=== PATIENT | male | born 1940 | race Caucasian/White ===

== ENCOUNTER 2021-06-14 10:50 | Outpatient (CLI) | payer MEDICARE, OTHER, SELFPAY ==
[2021-06-14 11:28] LABS: Basophils Percent Auto 0.3 % (0.2-1.2); Eosinophils Absolute Auto 0.1 K/mm3 (0-0.3); Eosinophils Percent Auto 0.8 % (0-4.4); Hematocrit 44.6 % (42.0-52.0); Hemoglobin 14.1 g/dL (14.0-18.0); Immature Granulocyte Absolute 0.02 K/mm3 (0.00-0.031); Immature Granulocyte Percent A 0.3 % (0-0.5); Immature Platelet Fraction Pct 4.1 % (0.9-11.2); Lymphocytes Absolute Auto 0.79 K/mm3 (0.9-3.2); Lymphocytes Percent Auto 12.8 % (18.3-44.2); Mean Corpuscular HGB Conc 31.6 g/dl (32-36); Mean Corpuscular Hemoglobin 31.3 pg (26-34); Mean Corpuscular Volume 98.9 fl (80-100); Monocytes Absolute Auto 0.2 K/mm3 (0.1-0.6); Monocytes Percent Auto 3.2 % (2.6-8.5); Neutrophils Absolute Auto 5.1 K/mm3 (1.3-6.7); Neutrophils Percent Auto 82.6 % (45.5-73.1); Platelet Count Result 126 k/mm3 (150-375); Red Blood Count 4.51 M/mm3 (4.6-6.20); White Blood Count 6.2 K/mm3 (4.5-10.0)
[2021-06-14 11:36] LABS: Anion Gap 9 mmol/L (8-16); Blood Urea Nitrogen 29 mg/dL (9-20); Calcium 9.6 mg/dL (8.4-10.2); Carbon Dioxide 31 mmol/L (22-30); Chloride 100 mmol/L (98-107); Estimated Glomerular Filt Rate > 60; Glucose 227 mg/dL (65-110); Potassium 4.2 mmol/L (3.4-5.0); Sodium 140 mmol/L (137-145)
[2021-06-14 11:37] LABS: INR 1.1; Prothrombin Time 13.4 Seconds (11.1-14.7)
[2021-06-14 11:38] LABS: Partial Thromboplastin Time 25.6 SECONDS (22.3-36.8)
--- NOTE | 2021-06-14 12:30 | ECG_ITS ---
Measurements Intervals [place] Rate: 67 P: 22 TX: 146 QRS: 43 QRSD: 91 T: 50 QT: 406 QTc: 429 Interpretive Statements SINUS RHYTHM BASELINE ARTIFACT- I, II, III, AVR, AVL, AVF NORMAL ECG Electronically Signed On 06-14-2021 11:55:27 CDT by Barrett Houston D.O.
== END 2021-06-14 10:51 | disposition home or self-care (01) ==
LOC: ANHSURGERY 10:54
PROVIDERS: PCP Family Medicine; Visit Provider Urology
DX: Z01.818 Encounter for other preprocedural examination (principal); I10 Essential (primary) hypertension; C67.9 Malignant neoplasm of bladder, unspecified
CPT/HCPCS: 36415; 80048; 85025; 85055; 85610; 85730; 87086; 93005

== ENCOUNTER 2021-06-18 00:05 | Day surgery (SDC) | payer MEDICARE, OTHER, SELFPAY ==
--- NOTE | 2021-06-14 10:08 | PC.NURSE ---
Report to the Outpatient Waiting Room, entrance under the green pavilion located off [facility], at time _0830 on date ___06/18/21____. OR Time: ___1030 . - You and your visitor will be asked a series of questions to screen for COVID 19 for your protection. - Only one visitor is allowed at this time. - The patient visitor is requested to leave or wait in car when not with patient. - A mask is required within the hospital. Patients may have clear liquids (water, carbonated beverages, clear teas, apple juice) until 3 hours prior to surgery with a maximum of 20 ounces. - No food from midnight until time of surgery - Infants may have breast milk until 4 hours before surgery, infant formula 6 hours prior to surgery. - Children will be allowed to drink immediately following surgery. If applicable, please bring a bottle or sippy cup to assist with drinking. Juice, water, soda, and popsicles are readily available. For infants on formula, please bring formula the day of surgery. Pacifiers are allowed. Take the following medications with a SIP of water the morning of surgery: ___METOPROLOL, AND PREGABALIN Medications to discontinue per physician _PT STATES ALL VITAMINS AND SUPPLEMENTS AND ASPIRIN 7 DAYS PRE OP PER DR MATIAS. ELIQUIS 3 DAYS PRE OP PER DR MATIAS Date to take last dose_ASPIRIN/PADMAJA/SUPPLEMENTS 06/10/21, ELIQUIS 06/14/21 Please no make-up, nail georgian, hairspray, perfume, deodorant, or body powder the day of surgery. No jewelry (including any body piercings) or valuables the day of surgery, leave them at home. Please take a shower or bath the night before, or the morning of, surgery with an antibacterial soap. Wear comfortable, loose fitting clothing. Children are encouraged to wear pajamas. - Jewelry must be removed prior to entering the operating room. Rings and piercings that are not removed may be cut off. - The hospital will not accept responsibility for valuables. - Please leave all valuables, including medications, at home the day of surgery. If you are going home after surgery, a licensed driver guard must drive you home. - NO public transportation without another adult. - We recommend that an adult stay with you for 24 hours following discharge. - We also recommend that you do not drive, make important decision, drink alcoholic beverages, or take any drugs that were not prescribed by your health care provider for at least 24 hours after your discharge time. For Pediatric surgeries, we recommend two adults accompany the child home (only one inside the building at this time). Follow any additional instructions given to you from your surgeon. If you or anyone in your household have experienced Covid symptoms in the past week, please notify your surgeon or the nurse liaison at the phone number below for possible testing. Telephone instructions given to __PATIENT AND SIMI and asked if any additional questions and then verbalized understanding. Patient advised to call surgeon office or pre surgery nurse liaison [phone] if any additional questions.
[2021-06-14 10:12] VITALS: BMI 21.3
[2021-06-18] VITALS (8 sets, daily range): BP systolic 122–157; BP diastolic 66–79; PULSE 70–87; RESP 13–16; TEMP 36.2–36.3; O2SAT 96–100
--- NOTE | ~2021-06-18 | XR_ITS ---
XR retrograde pyelogram BI DATE: 06/18/2021 10:08 INDICATION: Bilateral stones TECHNIQUE: 27.0 seconds fluoroscopy time [id number] [id number] Multiple spot C-arm images during retrograde pyelogram procedure performed by urologist COMPARISON: 12/15/2017 right retrograde pyelogram FINDINGS: No right ureteral stricture, abnormal dilatation or obstruction is evident. Right renal col lecting system and right renal pelvis appear unremarkable. IMPRESSION: No significant abnormality demonstrated; recommend correlation with urologist procedure r eport Reviewed, dictated and finalized at [facility]. Reviewed, dictated and finalized at location [facility]. IMPRESSION: No significant abnormality demonstrated; recommend correlation with urologist procedure report
--- NOTE | 2021-06-18 07:36 | WPDHPUPDATE1 ---
History and Physical Update Update Date/Time: 06/18/21 07:36 History and Physical has been reviewed, including an updated exam of the patient. There are NO changes in the patient's condition. Risks, benefits, and alternatives have been discussed and questions answered. Patient agrees to proceed with procedure. Proceed with cysto, bilateral retrogrades with ureteroscopy, stent placement turbt
--- NOTE | 2021-06-18 08:12 | P.PNAN_ITS ---
Anes - Initial Pre Proc Eval Procedure: Operation Date: 06/18/21 10:30 Proposed Procedures p Trans Urethral Resection Bladder Tumor, - David English MD s Bilateral Retrograde Pyelogram, Possible Ureteroscopy, Possible Stent Placement - David English MD Date/Time: 06/18/21 08:12 Surgeon: David English MD Pre Op Diagnosis: bladder CA Patient Data Age: 81 Gender: M Height: 1.73 m Weight: 63.6 kg Allergies Allergy/AdvReac Type Severity Reaction Status Date / Time No Known Allergies Allergy Unverified 06/14/21 09:38 Home Medications Medication Instructions Recorded Confirmed Type Lactobacillus acidophilus 1,000 mmu cells PO DAILY 01/31/19 06/14/21 History ascorbic acid (vitamin C) 500 mg PO BID 01/31/19 06/14/21 History aspirin [Adult Low Dose Aspirin] 81 mg PO DAILY 01/31/19 06/14/21 History cholecalciferol (vitamin D3) 5,000 unit PO DAILY 01/31/19 06/14/21 History coQ10 (ubiquinol) 200 mg PO BID 01/31/19 06/14/21 History garlic 1,000 mg PO DAILY 01/31/19 06/14/21 History magnesium oxide 500 mg PO DAILY 01/31/19 06/14/21 History multivit with min-folic acid 0.4 mg PO DAILY 01/31/19 06/14/21 History [Adult One Daily Multivitamin] omega 9-qkf-ibw-fish oil [Fish Oil] 1 cap PO BID 01/31/19 06/14/21 History simvastatin 5 mg PO HS 01/31/19 06/14/21 History apixaban [Eliquis] 5 mg PO BID 06/14/21 06/14/21 History diphenoxylate-atropine 1 tablet PO DAILY 06/14/21 06/14/21 History empagliflozin [Jardiance] 25 mg PO DAILY 06/14/21 06/14/21 History escitalopram oxalate 10 mg PO HS 06/14/21 06/14/21 History losartan 50 mg PO DAILY 06/14/21 06/14/21 History metoprolol tartrate 25 mg PO DAILY 06/14/21 06/14/21 History pregabalin 75 mg PO BID 06/14/21 06/14/21 History Patient hx anesthesia problems: none Family hx anesthesia problems: none Results Review: All pre-operative results and documents have been reviewed as part of the pre-operative evaluation. [facility] Past Medical History Medical History Diabetes type 2, controlled DVT (deep venous thrombosis) superficial History of colon cancer Hyperlipidemia Neuropathy Surgical History Surgical History (Updated 06/18/21 @ 08:14 by Christian Guillaume MD) History of colon resection Hx of cystoscopy Social History Social History Smoking status: Never smoker Living arrangements: with family Spiritual care concerns: No Anes - Eval Final PreProcedure Day of Procedure 06/18/21 08:12 Patient weight: normal Heart: regular rate and rhythm Lungs: clear to auscultation Airway: Mallampati scale class II Neurological: alert and oriented Last oral intake: >/= 8 hours ASA classification: III Emergent: no Anesthetic plan: proceed Anesthesia type and monitoring: general LMA and standard monitoring Results Review: All pre-operative results and documents have been reviewed as part of the pre-operative evaluation. Informed Consent: The patient's anesthetic plan and its attendant risks and benefits were discussed with the patient/family/POA. Questions were solicited and answers provided to the satisfaction of the patient/family/POA.
[2021-06-18] MEDS: LACTATED RINGERS 1,000 ML 30 ML IV CONT (08:29)
[2021-06-18 08:44] LABS: Glucose Point of Care 134 mg/dl (65-105)
[2021-06-18] MEDS: ceFAZolin 2 GM/D5W 50 ML 2 GM/50 ML BAG IVPB (09:31)
[2021-06-18] MEDS: LIDOCAINE HCL 2% GEL UROJET 10 ML PKG MUCOUS MEM (10:00)
--- NOTE | 2021-06-18 10:05 | W.PM.PROC2 ---
Procedure Note - Detailed Date of Procedure 06/18/21 Pre-op Diagnosis bladder CA Post-op Diagnosis Same Procedure Performed Cystoscopy, bilateral retrograde pyelograms, transurethral resection of bladder tumor posterior wall with fulguration of extensive area of mucosal irregularity Surgeon David English MD Anesthesia General Description of Procedure Patient is taken to the operative suite and correctly identified. Once anesthesia was obtained he was placed in dorsal lithotomy position and prepped and draped usual sterile fashion. Twenty-two Guatemalan scope inserted in the bladder. There was no urethral strictures. The bladder itself has a tumor along the posterior wall measuring approximately 1 cm. He also has some irregularity of the mucosa along the right lateral wall. , as well as the floor on the left distal to the trigone extending to the left lateral wall. At this point time we did bilateral retrograde pyelograms. The right ureteral orifice is wide open from a prior resection. The [place] was advanced up into the kidney there was no filling defects noted. The left retrograde pyelogram revealed some tortuosity in the distal ureter. No other filling defects noted. The left collecting system drained after approximately 5 minutes. We then exchanged the scope out for a 24 Guatemalan resectoscope sheath. The posterior wall lesion was then resected and sent for analysis. We placed a rollerball and fulgurated the base. We then fulgurated some of the mucosa along the right lateral wall as well as the left debby trigone area distally in left lateral wall. There was good hemostasis at termination of procedure. 2% viscous lidocaine was inserted into the urethra patient is taken recovery stable condition. He will call for path results in 1 week Estimated Blood Loss 0 Drains No Packing No Pathology Yes Complications No immediate complications Condition Stable Disposition PACU
[2021-06-18 10:18] LABS: Glucose Point of Care 140 mg/dl (65-105)
== END 2021-06-18 12:38 | disposition home or self-care (01) ==
PROVIDERS: PCP Family Medicine; Visit Provider Urology
PROC: 0TBB8ZZ Excision of Bladder, Via Natural or Artificial Opening Endoscopic (ICD-10-PCS; CPT 52234; principal; 2021-06-18 10:30)
PROC: (CPT 52352; 2021-06-18 10:30)
DX: C67.4 Malignant neoplasm of posterior wall of bladder (principal); E78.5 Hyperlipidemia, unspecified; E11.40 Type 2 diabetes mellitus with diabetic neuropathy, unspecified; F03.90 Unspecified dementia, unspecified severity, without behavioral disturbance, psychotic disturbance, mood disturbance, and anxiety; I11.9 Hypertensive heart disease without heart failure; Z85.038 Personal history of other malignant neoplasm of large intestine; Z86.718 Personal history of other venous thrombosis and embolism; Z90.49 Acquired absence of other specified parts of digestive tract; Z79.01 Long term (current) use of anticoagulants; Z79.82 Long term (current) use of aspirin; Z79.84 Long term (current) use of oral hypoglycemic drugs
CPT/HCPCS: 52234; 74420; 82948; 88305; A9270; C1758; C1769; J0690; J2370; J2405; J2704; J3010; J7120; Q9966

== ENCOUNTER 2021-06-24 18:19 | Emergency (ER) | payer MEDICARE, OTHER, SELFPAY ==
[2021-06-24 18:19] VITALS: BP 100/54; PULSE 88; RESP 18; TEMP 36.1; O2SAT 97
[2021-06-24 18:35] LABS: Basophils Absolute Auto 0.1 K/mm3 (0.0-0.1); Basophils Percent Auto 0.7 % (0.2-1.2); Eosinophils Absolute Auto 0.2 K/mm3 (0-0.3); Eosinophils Percent Auto 2.1 % (0-4.4); Hematocrit 43.1 % (42.0-52.0); Hemoglobin 13.6 g/dL (14.0-18.0); Immature Granulocyte Absolute 0.01 K/mm3 (0.00-0.031); Immature Granulocyte Percent A 0.1 % (0-0.5); Immature Platelet Fraction Pct 4.5 % (0.9-11.2); Lymphocytes Absolute Auto 1.08 K/mm3 (0.9-3.2); Lymphocytes Percent Auto 15.1 % (18.3-44.2); Mean Corpuscular HGB Conc 31.6 g/dl (32-36); Mean Corpuscular Hemoglobin 30.9 pg (26-34); Mean Platelet Volume 10.6 fl (7.4-10.4); Monocytes Absolute Auto 0.6 K/mm3 (0.1-0.6); Monocytes Percent Auto 8.8 % (2.6-8.5); Neutrophils Absolute Auto 5.2 K/mm3 (1.3-6.7); Neutrophils Percent Auto 73.2 % (45.5-73.1); Platelet Count Result 135 k/mm3 (150-375); Red Cell Distribution Width 15.2 % (11.5-14.5); White Blood Count 7.1 K/mm3 (4.5-10.0)
[2021-06-24 18:45] LABS: INR 1.1; Prothrombin Time 14.1 Seconds (11.1-14.7)
[2021-06-24 18:46] LABS: Alanine Aminotransferase 17 U/L (6-50); Albumin Level 4.6 g/dL (3.5-5.1); Alkaline Phosphatase 74 U/L (38-126); Anion Gap 5 mmol/L (8-16); Aspartate Amino Transferase 28 U/L (17-59); Bilirubin,Total 0.9 mg/dL (0.2-1.3); Blood Urea Nitrogen 27 mg/dL (9-20); Calcium 9.7 mg/dL (8.4-10.2); Carbon Dioxide 30 mmol/L (22-30); Chloride 102 mmol/L (98-107); Estimated CRCL calculation 43 ml/min; Estimated Glomerular Filt Rate 58; Glucose 138 mg/dL (65-110); Partial Thromboplastin Time 28.4 SECONDS (22.3-36.8); Sodium 137 mmol/L (137-145)
[2021-06-24 18:49] LABS: Add Urine Microscopic? YES; Appearance Urine Cloudy (Clear); Blood Urine 3+ (Negative); Color Urine Red (Yellow); Glucose Urine UA 3+ mg/dL (Negative); Protein Urine 3+ mg/dL (Negative)
[2021-06-24 20:02] VITALS: BP 110/68; PULSE 78; RESP 16; TEMP 36.8; O2SAT 98
--- NOTE | 2021-06-24 20:07 | ED.MALEGU ---
HPI - Male Genitourinary General Chief complaint: Urogenital-Male Stated complaint: HEMATURIA Time Seen by Provider: 06/24/21 19:53 Source: patient, RN notes reviewed and old records reviewed Mode of arrival: ambulatory Limitations: no limitations History of Present Illness HPI Narrative: This is a 81 year old male with history of DVT, colon cancer, bladder cancer s/p transurethral resection of bladder tumor 06/18/21 who presents for evaluation of hematuria. Patient developed blood in his urine 3 days ago. Today he restarted his eliquis and his bleeding has worsening. He states he is passing clots in his urine now. He denies abdominal pain, nausea, vomiting, fever or chills. His states patient is on Eliquis for DVT prophylaxis due to cancer treatment. PAtient was diagnosed with DVT in 2019 per . Related Data Home Medications Medication Instructions Recorded Confirmed Lactobacillus acidophilus 1,000 mmu cells PO DAILY 01/31/19 06/18/21 ascorbic acid (vitamin C) 500 mg PO BID 01/31/19 06/18/21 aspirin [Adult Low Dose Aspirin] 81 mg PO DAILY 01/31/19 06/18/21 cholecalciferol (vitamin D3) 5,000 unit PO DAILY 01/31/19 06/18/21 coQ10 (ubiquinol) 200 mg PO BID 01/31/19 06/18/21 garlic 1,000 mg PO DAILY 01/31/19 06/18/21 magnesium oxide 500 mg PO DAILY 01/31/19 06/18/21 multivit with min-folic acid 0.4 mg PO DAILY 01/31/19 06/18/21 [Adult One Daily Multivitamin] omega 4-wox-gvj-fish oil [Fish Oil] 1 cap PO BID 01/31/19 06/18/21 simvastatin 5 mg PO HS 01/31/19 06/18/21 Eliquis 5 mg PO BID 06/14/21 06/18/21 Jardiance 25 mg PO DAILY 06/14/21 06/18/21 diphenoxylate-atropine 1 tablet PO DAILY 06/14/21 06/18/21 escitalopram oxalate 10 mg PO HS 06/14/21 06/18/21 losartan 50 mg PO DAILY 06/14/21 06/18/21 metoprolol tartrate 25 mg PO DAILY 06/14/21 06/18/21 pregabalin 75 mg PO BID 06/14/21 06/18/21 Lantus Solostar U-100 Insulin 20 unit SUBCUT HS 06/18/21 06/18/21 hydrocodone-acetaminophen 1 tablet PO PRN 06/18/21 06/18/21 Allergies Allergy/AdvReac Type Severity Reaction Status Date / Time No Known Allergies Allergy Verified 06/24/21 18:23 Review of Systems Review of Systems: All systems reviewed & are unremarkable except as noted in HPI and below Constitutional: Constitutional: Denies chills, Denies fever(s) and Denies weakness Respiratory: Respiratory: Denies dyspnea Gastrointestinal: Gastrointestinal: Denies abdominal pain, Denies diarrhea, Denies nausea and Denies vomiting Genitourinary: Genitourinary: Reports hematuria, Denies oliguria, Denies dysuria and Denies urinary frequency Musculoskeletal: Musculoskeletal: Denies back pain [facility] Past Medical History Medical History (Updated 06/25/21 @ 00:00 by Lawrence Feliz) Diabetes type 2, controlled DVT (deep venous thrombosis) superficial History of colon cancer Hyperlipidemia Neuropathy Surgical History Surgical History (Updated 06/18/21 @ 08:14 by Christian Guillaume MD) History of colon resection Hx of cystoscopy Social History Social History Smoking status: Never smoker Spiritual care concerns: No Exam Const: General: no acute distress Orientation/consciousness: patient oriented x3 Other: thin Eyes: EOM: EOMs intact bilaterally Resp: Effort & Inspection: normal respiratory effort and no retractions Auscultation: clear to auscultation bilaterally Cardio: Rate: regular rate Rhythm: regular rhythm Heart sounds: no murmurs GI: GI Palp: Yes Soft to palpation, No Tenderness to palpation present (GI), No Guarding due to palpation present (GI) and No Rigid due to palpation Auscultation: normal bowel sounds Other: drain in RUQ : Male General Exam: Yes normal external exam Back/Spine/Pelvis: Back: no CVA tenderness Neuro: General: patient oriented x3 and moves all extremities Cranial nerves: Yes Nystagmus not present Psych: Mental Status: mental status grossly normal
[2021-06-24 21:00] VITALS: BP 108/68; PULSE 92; RESP 16; TEMP 36.4
[2021-06-24 22:00] VITALS: BP 114/72; PULSE 86; RESP 16; TEMP 36.6; O2SAT 98
[2021-06-24 22:44] LABS: RBC Urine >75 /hpf (0-2)
[2021-06-24 23:01] LABS: Ketones Urine Negative (Negative); Specific Grav Ur 1.025 (1.001-1.035)
[2021-06-24 23:02] LABS: Bilirubin Urine Negative (Negative); Leukocyte Esterase Ur Negative LEU/UL (Negative); Nitrate Urine Negative (Negative); Urobilinogen Urine 0.2 mg/dL (<2.0)
== END 2021-06-24 22:29 | disposition home or self-care (01) ==
PROVIDERS: Emergency Medicine; Emergency Provider General Practice; PCP Family Medicine
DX: R31.0 Gross hematuria (principal); C67.9 Malignant neoplasm of bladder, unspecified; E78.5 Hyperlipidemia, unspecified; E11.40 Type 2 diabetes mellitus with diabetic neuropathy, unspecified; Z85.038 Personal history of other malignant neoplasm of large intestine; Z86.718 Personal history of other venous thrombosis and embolism; Z79.82 Long term (current) use of aspirin; Z79.01 Long term (current) use of anticoagulants; Z79.84 Long term (current) use of oral hypoglycemic drugs; Z79.4 Long term (current) use of insulin
CPT/HCPCS: 36415; 80053; 81001; 85025; 85055; 85610; 85730; 99283

== ENCOUNTER 2022-01-23 07:58 | Outpatient (CLI) | payer MEDICARE, OTHER, SELFPAY ==
[2022-01-23 08:28] LABS: Anion Gap 6 mmol/L (8-16); Blood Urea Nitrogen 13 mg/dL (9-20); Calcium 9.3 mg/dL (8.4-10.2); Carbon Dioxide 32 mmol/L (22-30); Chloride 106 mmol/L (98-107); Estimated Glomerular Filt Rate > 60; Glucose 129 mg/dL (65-110); Potassium 3.2 mmol/L (3.4-5.0); Sodium 144 mmol/L (137-145)
[2022-01-23 08:39] LABS: Basophils Percent Auto 0.6 % (0.2-1.2); Eosinophils Absolute Auto 0.2 K/mm3 (0-0.3); Eosinophils Percent Auto 3.4 % (0-4.4); Hematocrit 43.9 % (42.0-52.0); Hemoglobin 13.7 g/dL (14.0-18.0); Immature Granulocyte Absolute 0.01 K/mm3 (0.00-0.031); Immature Granulocyte Percent A 0.2 % (0-0.5); Immature Platelet Fraction Pct 6.2 % (0.9-11.2); Lymphocytes Absolute Auto 0.98 K/mm3 (0.9-3.2); Lymphocytes Percent Auto 18.4 % (18.3-44.2); Mean Corpuscular HGB Conc 31.2 g/dl (32-36); Mean Corpuscular Hemoglobin 27.6 pg (26-34); Mean Corpuscular Volume 88.3 fl (80-100); Mean Platelet Volume 11.6 fl (7.4-10.4); Monocytes Absolute Auto 0.4 K/mm3 (0.1-0.6); Monocytes Percent Auto 7.7 % (2.6-8.5); Neutrophils Absolute Auto 3.7 K/mm3 (1.3-6.7); Neutrophils Percent Auto 69.7 % (45.5-73.1); Platelet Count Result 127 k/mm3 (150-375); Red Blood Count 4.97 M/mm3 (4.6-6.20); White Blood Count 5.3 K/mm3 (4.5-10.0)
[2022-01-23 08:41] LABS: INR 1.1; Prothrombin Time 13.5 Seconds (11.1-14.7)
[2022-01-23 08:42] LABS: Partial Thromboplastin Time 33.1 SECONDS (22.3-36.8)
== END 2022-01-23 07:59 | disposition home or self-care (01) ==
PROVIDERS: PCP Family Medicine; Visit Provider Urology
DX: C67.9 Malignant neoplasm of bladder, unspecified (principal); Z01.818 Encounter for other preprocedural examination
CPT/HCPCS: 36415; 80048; 85025; 85055; 85610; 85730; 87086

== ENCOUNTER 2022-02-11 06:01 | Day surgery (SDC) | payer MEDICARE, OTHER, SELFPAY ==
[2022-01-17 08:13] VITALS: BMI 22.8
--- NOTE | 2022-01-17 08:43 | PC.NURSE ---
Report to the Outpatient Waiting Room, entrance under the green pavilion located off [facility], at time __6:30AM on date ___01/28/22____. Planned Procedure Time: __8:30AM . Time changes happen often and if your time is changed the preop area will call you the afternoon before. - You and your visitor will be asked to self-screen and do not enter if you have any COVID symptoms. - Only one visitor is requested with a max of two and NO children visitors are allowed at this time. - The patient visitor may be requested to leave or wait in car when not with patient due to distancing restrictions. - A mask is optional within the hospital. Patients may have clear liquids (water, carbonated beverages, clear teas, apple juice) until 3 hours prior to surgery with a maximum of 20 ounces. - No food from midnight until time of surgery Take the following medications with a SIP of water the morning of surgery: __METOPROLOL; _PREGABALIN, HYDROCODONE & ZOFRAN NEEDED Medications to discontinue per physician ____HOLD ELIQUIS PER MD(PT'S CALLING OFFICE TO VERIFY), HOLD ASPIRIN & ALL VITAMINS/SUPPLEMENTS 7 DAYS PRE-OP PER DR MATIAS' OFFICE- LAST DOSE 01/21/22 Please no make-up, nail hebrew, hairspray, perfume, deodorant, or body powder the day of surgery. No jewelry (including any body piercings) or valuables the day of surgery, leave them at home. Please take a shower or bath the night before, or the morning of, surgery with an antibacterial soap. Wear comfortable, loose fitting clothing. Children are encouraged to wear pajamas. - Jewelry must be removed prior to entering the operating room. Rings and piercings that are not removed may be cut off. - The hospital will not accept responsibility for valuables. - Please leave all valuables, including medications, at home the day of surgery. If you are going home after surgery, a licensed combine driver must drive you home. - NO public transportation without another adult if you receive anesthesia. - We recommend that an adult stay with you for 24 hours following discharge. - We also recommend that you do not drive, make important decision, drink alcoholic beverages, or take any drugs that were not prescribed by your health care provider for at least 24 hours after your discharge time. Follow any additional instructions given to you from your surgeon. If you or anyone in your household have experienced Covid symptoms in the past week, please notify your surgeon or the nurse liaison at the phone number below for possible testing. Telephone instructions given to __PATIENT'S -SIMI___and asked if any additional questions and then verbalized understanding. Patient advised to call surgeon office or pre surgery nurse liaison [phone] if any additional questions.
--- NOTE | 2022-01-23 10:29 | PC.NURSE ---
Report to the Outpatient Waiting Room, entrance under the green pavilion located off [facility] [address], at time __6:00AM on date __02/11/22 . Planned Procedure Time: __7:30AM . Time changes happen often and if your time is changed the preop area will call you the afternoon before. - You and your visitor will be asked to self-screen and do not enter if you have any COVID symptoms. - Only one visitor is requested with a max of two and NO children visitors are allowed at this time. - The patient visitor may be requested to leave or wait in car when not with patient due to distancing restrictions. - A mask is optional within the hospital. Patients may have clear liquids (water, carbonated beverages, clear teas, apple juice) until 3 hours prior to surgery with a maximum of 20 ounces. - No food from midnight until time of surgery Take the following medications with a SIP of water the morning of surgery: _METOPROLOL; HYDROCODONE, PREGABALIN AND ZOFRAN NEEDED Medications to discontinue per physician HOLD ELIQUIS PER DR MATIAS(2 DAYS PER PT/)-LAST DOSE -02/08/22, HOLD ASPIRIN AND VITAMINS/SUPPLEMENTS 7 DAYS PRE-OP PER DR MATIAS(PER PT/) -LAST DOSE 02/04/22 Date to take last dose Please no make-up, nail albanian, hairspray, perfume, deodorant, or body powder the day of surgery. No jewelry (including any body piercings) or valuables the day of surgery, leave them at home. Please take a shower or bath the night before, or the morning of, surgery with an antibacterial soap. Wear comfortable, loose fitting clothing. Children are encouraged to wear pajamas. - Jewelry must be removed prior to entering the operating room. Rings and piercings that are not removed may be cut off. - The hospital will not accept responsibility for valuables. - Please leave all valuables, including medications, at home the day of surgery. If you are going home after surgery, a licensed crew truck driver must drive you home. - NO public transportation without another adult if you receive anesthesia. - We recommend that an adult stay with you for 24 hours following discharge. - We also recommend that you do not drive, make important decision, drink alcoholic beverages, or take any drugs that were not prescribed by your health care provider for at least 24 hours after your discharge time. Follow any additional instructions given to you from your surgeon. If you or anyone in your household have experienced Covid symptoms in the past week, please notify your surgeon or the nurse liaison at the phone number below for possible testing. Telephone instructions given to _PATIENT AND WIFE___and asked if any additional questions and then verbalized understanding. Patient advised to call surgeon office or pre surgery nurse liaison [phone] if any additional questions.
[2022-02-11] VITALS (8 sets, daily range): BP systolic 103–155; BP diastolic 55–83; PULSE 62–83; RESP 10–16; TEMP 36.2–36.5; O2SAT 95–100
[2022-02-11] MEDS: LACTATED RINGERS 1,000 ML 30 ML IV CONT (06:30)
[2022-02-11 06:47] LABS: Glucose Point of Care 83 mg/dl (65-105)
--- NOTE | 2022-02-11 07:33 | PM.IMHP ---
H&P: HPI History of Present Illness Date/Time: 02/11/22 07:33 Chief Complaint: bladder cancer Narrative: 81 yr old male with history of bladder carcinoma with recent cystoscopy showing abnormal lesions. Presents for TURBT. Review of Systems Review of Systems: All systems reviewed & are unremarkable except as noted in HPI and below PMFSH Past Medical History Medical History Diabetes type 2, controlled DVT (deep venous thrombosis) superficial History of colon cancer Hyperlipidemia Neuropathy Surgical History Surgical History History of colon resection Hx of cystoscopy Social History Social History Smoking status: Never smoker Substance use: never Living arrangements: with family Spiritual care concerns: No Meds Home Medications and Allergies Home Medications Medication Instructions Recorded Confirmed Type Lactobacillus acidophilus 1,000 mmu cells PO DAILY 01/31/19 02/11/22 History ascorbic acid (vitamin C) 500 mg 500 mg PO BID 01/31/19 02/11/22 History capsule aspirin 81 mg tablet,delayed 81 mg PO DAILY 01/31/19 02/11/22 History release (Adult Low Dose Aspirin) cholecalciferol (vitamin D3) 125 5,000 unit PO DAILY 01/31/19 02/11/22 History mcg (5,000 unit) disintegrating tablet coQ10 (ubiquinol) 200 mg capsule 200 mg PO BID 01/31/19 02/11/22 History garlic 1,000 mg capsule 1,000 mg PO DAILY 01/31/19 02/11/22 History multivitamin with minerals-folic 0.4 mg PO DAILY 01/31/19 02/11/22 History acid 0.4 mg tablet (Adult One Daily Multivitamin) omega 3-zyj-xzy-fish oil 1,000 mg 1 cap PO BID 01/31/19 02/11/22 History (120 mg-180 mg) capsule (Fish Oil) apixaban 5 mg tablet (Eliquis) 5 mg PO BID 06/14/21 02/11/22 History diphenoxylate-atropine 2.5 1 tablet PO DAILY 06/14/21 02/11/22 History mg-0.025 mg tablet empagliflozin 25 mg tablet 25 mg PO QAM 06/14/21 01/23/22 History (Jardiance) escitalopram oxalate 10 mg tablet 10 mg PO HS 06/14/21 02/11/22 History metoprolol tartrate 25 mg tablet 12.5 mg PO BID 06/14/21 02/11/22 History pregabalin 75 mg capsule 75 mg PO BID 06/14/21 02/11/22 History hydrocodone 5 mg-acetaminophen 325 1 tablet PO PRN PRN Pain 06/18/21 02/11/22 History mg tablet insulin glargine 100 unit/mL (3 20 unit subcut HS 06/18/21 02/11/22 History mL) subcutaneous pen (Lantus Solostar U-100 Insulin) cholestyramine (with sugar) 4 gram 1 ea PO BID 01/17/22 02/11/22 History oral powder ondansetron HCl 4 mg tablet 4 mg PO Q4-6H PRN Nausea 01/17/22 02/11/22 History prochlorperazine maleate 10 mg 10 mg PO Q6-8H PRN Nausea 01/17/22 02/11/22 History tablet simvastatin 10 mg tablet 10 mg PO HS 01/17/22 02/11/22 History trazodone 50 mg tablet 50 mg PO HS PRN Insomnia 01/17/22 02/11/22 History Allergies Allergy/AdvReac Type Severity Reaction Status Date / Time No Known Allergies Allergy Verified 02/11/22 06:21 Vital Signs Vital Signs - 24 hr 02/11/22 06:15 Temperature 36.2 C L Pulse Rate 83 Respiratory Rate 16 Blood Pressure 129/57 L Pulse Oximetry 95 Oxygen Delivery Room Air Exam Const: General: cooperative HENMT: Head: normal to inspection Eyes: General: appearance normal, both eyes and all related structures Neck: Neck: normal visual inspection Chest: Chest palpation & inspection: normal inspection of the chest Resp: Effort & Inspection: normal respiratory effort Cardio: Rate: regular rate Rhythm: regular rhythm Assessment and Plan Assessment and plan (1) Bladder cancer: Code(s): C67.9 - Malignant neoplasm of bladder, unspecified Status: Acute Assessment and Plan: TURBT
--- NOTE | 2022-02-11 07:36 | WPDANESEPPF ---
Anes - Initial Pre Proc Eval Procedure: Operation Date: 02/11/22 07:30 Proposed Procedures p Trans Urethral Resection Bladder Tumor - David English MD Date/Time: 02/11/22 07:36 Surgeon: David English MD Pre Op Diagnosis: bladder CA Patient Data Age: 81 Gender: M Height: 1.73 m Weight: 63.1 kg Last Vital Signs Temp 36.2 C L 02/11/22 06:15 Pulse 83 02/11/22 06:15 Resp 16 02/11/22 06:15 BP 129/57 L 02/11/22 06:15 Pulse Ox 95 02/11/22 06:15 O2 Del Method Room Air 02/11/22 06:15 Allergies Allergy/AdvReac Type Severity Reaction Status Date / Time No Known Allergies Allergy Verified 02/11/22 06:21 Home Medications Medication Instructions Recorded Confirmed Type Lactobacillus acidophilus 1,000 mmu cells PO DAILY 01/31/19 02/11/22 History ascorbic acid (vitamin C) 500 mg 500 mg PO BID 01/31/19 02/11/22 History capsule aspirin 81 mg tablet,delayed 81 mg PO DAILY 01/31/19 02/11/22 History release (Adult Low Dose Aspirin) cholecalciferol (vitamin D3) 125 5,000 unit PO DAILY 01/31/19 02/11/22 History mcg (5,000 unit) disintegrating tablet coQ10 (ubiquinol) 200 mg capsule 200 mg PO BID 01/31/19 02/11/22 History garlic 1,000 mg capsule 1,000 mg PO DAILY 01/31/19 02/11/22 History multivitamin with minerals-folic 0.4 mg PO DAILY 01/31/19 02/11/22 History acid 0.4 mg tablet (Adult One Daily Multivitamin) omega 0-tto-efh-fish oil 1,000 mg 1 cap PO BID 01/31/19 02/11/22 History (120 mg-180 mg) capsule (Fish Oil) apixaban 5 mg tablet (Eliquis) 5 mg PO BID 06/14/21 02/11/22 History diphenoxylate-atropine 2.5 1 tablet PO DAILY 06/14/21 02/11/22 History mg-0.025 mg tablet empagliflozin 25 mg tablet 25 mg PO QAM 06/14/21 01/23/22 History (Jardiance) escitalopram oxalate 10 mg tablet 10 mg PO HS 06/14/21 02/11/22 History metoprolol tartrate 25 mg tablet 12.5 mg PO BID 06/14/21 02/11/22 History pregabalin 75 mg capsule 75 mg PO BID 06/14/21 02/11/22 History hydrocodone 5 mg-acetaminophen 325 1 tablet PO PRN PRN Pain 06/18/21 02/11/22 History mg tablet insulin glargine 100 unit/mL (3 20 unit subcut HS 06/18/21 02/11/22 History mL) subcutaneous pen (Lantus Solostar U-100 Insulin) cholestyramine (with sugar) 4 gram 1 ea PO BID 01/17/22 02/11/22 History oral powder ondansetron HCl 4 mg tablet 4 mg PO Q4-6H PRN Nausea 01/17/22 02/11/22 History prochlorperazine maleate 10 mg 10 mg PO Q6-8H PRN Nausea 01/17/22 02/11/22 History tablet simvastatin 10 mg tablet 10 mg PO HS 01/17/22 02/11/22 History trazodone 50 mg tablet 50 mg PO HS PRN Insomnia 01/17/22 02/11/22 History Laboratory Tests 02/11/22 06:45 POC Capillary Glucose 83 mg/dl mg/dl (65-105) Patient hx anesthesia problems: none Family hx anesthesia problems: none Results Review: All pre-operative results and documents have been reviewed as part of the pre-operative evaluation. [facility] Past Medical History Medical History (Updated 02/11/22 @ 07:37 by David English MD) Diabetes type 2, controlled DVT (deep venous thrombosis) superficial History of colon cancer Hyperlipidemia Liver metastases Lung nodule b/l increasing in size Neuropathy Surgical History Surgical History History of colon resection Hx of cystoscopy Social History Social History Smoking status: Never smoker Substance use: never Living arrangements: with family Spiritual care concerns: No Anes - Eval Final PreProcedure Day of Procedure 02/11/22 07:36 Patient weight: normal Heart: regular rate and rhythm Lungs: clear to auscultation Airway: Mallampati scale class II and special considerations poor dentition Neurological: alert and oriented Last oral intake: >/= 8 hours ASA classification: IV Emergent: no Anesthetic plan: proceed Anesthesia type
--- NOTE | 2022-02-11 07:37 | WPDHPUPDATE1 ---
History and Physical Update Update Date/Time: 02/11/22 07:37 History and Physical has been reviewed, including an updated exam of the patient. There are NO changes in the patient's condition. Risks, benefits, and alternatives have been discussed and questions answered. Patient agrees to proceed with procedure.
[2022-02-11] MEDS: ceFAZolin 2 GM/D5W 50 ML 2 GM/50 ML BAG IVPB (07:41)
[2022-02-11] MEDS: LIDOCAINE HCL 2% GEL UROJET 10 ML PKG MUCOUS MEM (07:57)
--- NOTE | 2022-02-11 08:18 | P.OP_ITS ---
Procedure Note - Detailed Date of Procedure 02/11/22 Pre-op Diagnosis bladder CA Post-op Diagnosis Same Procedure Performed Stone urethral dilation, cysto with transurethral resection of bladder tumor small area, 2 cm, fulguration Surgeon David English MD Anesthesia General Description of Procedure Patient is taken to the operative suite correctly identified. Once anesthesia was obtained he was placed in the dorsal lithotomy position and prepped and draped usual sterile fashion. Twenty-two Tanz[place] scope was inserted in the bladder however urethra felt tight. Upon entering the bladder there was some abnormality just lateral to the right ureteral orifice on the floor as well as the posterior anterior wall. We then dilated the urethra using male sounds up to 26 Tanz[place]. Twenty-four Tanzanian resectoscope sheath is then inserted the bladder. We went ahead and resected the area on the floor separate from the anterior wall area. We fulgurated these areas. There was good hemostasis at termination procedure. 2% viscous lidocaine was inserted to the urethra patient is taken recovery stable condition. He will call for the pathology results in 1 week. Estimated Blood Loss 0 Drains No Packing No Pathology Yes Complications No immediate complications Condition Stable Disposition PACU
[2022-02-11 08:31] LABS: Glucose Point of Care 82 mg/dl (65-105)
== END 2022-02-11 10:14 | disposition home or self-care (01) ==
PROVIDERS: PCP Family Medicine; Visit Provider Urology
PROC: 0TBB8ZZ Excision of Bladder, Via Natural or Artificial Opening Endoscopic (ICD-10-PCS; CPT 52234; principal; 2022-02-11 07:30)
DX: C67.0 Malignant neoplasm of trigone of bladder (principal); N30.80 Other cystitis without hematuria; E78.5 Hyperlipidemia, unspecified; E11.40 Type 2 diabetes mellitus with diabetic neuropathy, unspecified; Z85.038 Personal history of other malignant neoplasm of large intestine; Z86.718 Personal history of other venous thrombosis and embolism; Z79.01 Long term (current) use of anticoagulants; Z79.84 Long term (current) use of oral hypoglycemic drugs; Z79.4 Long term (current) use of insulin; Z90.49 Acquired absence of other specified parts of digestive tract
CPT/HCPCS: 52234; 82948; 88305; A9270; J0690; J2405; J2704; J3010; J7120